=== PATIENT | female | born 1950 | race Caucasian/White ===

== ENCOUNTER → 2023-09-16 06:36 | Outpatient (REF) | payer MEDICARE, OTHER, SELFPAY | LOC: MRI 3T 06:36 | PROVIDERS: ATTENDING PHYSICIAN Specialist; FAMILY PHYSICIAN Internal Medicine | DX: M25.512 Pain in left shoulder (principal) | CPT/HCPCS: 73221 ==

== ENCOUNTER → 2023-09-30 11:50 | Outpatient (REF) | payer MEDICARE, OTHER, SELFPAY ==
[2023-09-30 16:19] LABS: ALT (SGPT) 19 U/L (0-35); AST (SGOT) 24 U/L (14-36); Albumin 4.2 g/dl (3.5-5.0); Alkaline Phosphatase 116 U/L (38-126); Blood Urea Nitrogen 27 mg/dl (7-17); Calcium 9.2 mg/dl (8.4-10.2); Carbon Dioxide 27 mmol/L (22-30); Chloride 101 mmol/L (98-107); Glucose 96 mg/dl (70-99); HDL Cholesterol 69 mg/dl; LDL Cholesterol, Calculated 87 mg/dl; Potassium 3.9 mmol/L (3.5-5.1); Sodium 136 mmol/L (135-145); Total Bilirubin 0.7 mg/dl (0.2-1.3); Total Cholesterol 181 mg/dl (50-199); Total Protein 7.1 g/dl (6.3-8.2); Triglyceride 127 mg/dl (10-149); Very Low Density Lipoprotein 25 mg/dl (0-30); eGFR > 60.00
[2023-09-30 16:25] LABS: Vitamin D, 25-OH*** 30.6 ng/mL (30-80)
[2023-09-30 16:36] LABS: % Basophils 0.5 % (0-2); % Immature Granulocytes 0.5 % (0-0.5); % Lymphocytes 21.8 % (20.5-51.1); % Monocytes 8.2 % (1.7-9.3); Absolute Eosinophils 0.1 10^3/uL (0-0.7); Absolute Lymphocytes 1.9 10^3/uL (1.2-3.4); Absolute Monocytes 0.7 10^3/uL (0.1-0.6); Hematocrit 41.3 % (37.0-47.0); Mean Corp Hgb Conc. 33.9 g/dL (33.0-37.0); Mean Corpuscular Hgb 31.5 pg (27.0-31.0); Mean Corpuscular Volume 92.8 fL (81.0-99.0); Mean Platelet Volume 9.7 fL (7.4-10.4); Nucleated Red Blood Cells % 0 %; Platelet Count 353 10^3/uL (130-400); Red Blood Cell Count 4.45 10^6/uL (4.20-5.40); Red Cell Dist. Width 13.2 % (11.5-14.5); White Blood Cell Count 8.8 10^3/uL (4.8-10.8)
[2023-10-01 15:55] LABS: Glycohemoglobin (HgbA1c) 5.8 % (4.0-5.6)
== END ==
LOC: RCS 11:50
PROVIDERS: ATTENDING PHYSICIAN Specialist; FAMILY PHYSICIAN Internal Medicine; REFERRING PHYSICIAN Internal Medicine
DX: I10 Essential (primary) hypertension (principal); E78.5 Hyperlipidemia, unspecified; R73.01 Impaired fasting glucose; E55.9 Vitamin D deficiency, unspecified; Z01.818 Encounter for other preprocedural examination
CPT/HCPCS: 36415; 80053; 80061; 82306; 83036; 85025; 93005

== ENCOUNTER → 2023-10-04 11:48 | Outpatient (REF) | payer MEDICARE, OTHER, SELFPAY ==
[2023-10-06 15:22] LABS: Lyme Antibody Screen, EIA Negative (Negative)
== END ==
LOC: HWLAB 11:48
PROVIDERS: ATTENDING PHYSICIAN Internal Medicine
DX: M79.2 Neuralgia and neuritis, unspecified (principal)
CPT/HCPCS: 36415; 86618

== ENCOUNTER → 2024-02-01 07:19 | Outpatient (REF) | payer MEDICARE, OTHER, SELFPAY | LOC: HWWDC 07:19 | PROVIDERS: ATTENDING PHYSICIAN Internal Medicine | DX: Z12.31 Encounter for screening mammogram for malignant neoplasm of breast (principal) | CPT/HCPCS: 77063; 77067 ==

== ENCOUNTER → 2024-02-23 06:37 | Outpatient (REF) | payer MEDICARE, OTHER, SELFPAY | LOC: PAVMRI 06:37 | PROVIDERS: ATTENDING PHYSICIAN Specialist; FAMILY PHYSICIAN Internal Medicine | DX: M25.511 Pain in right shoulder (principal) | CPT/HCPCS: 73221 ==

== ENCOUNTER → 2024-04-19 12:29 | Outpatient (REF) | payer MEDICARE, OTHER, SELFPAY ==
[2024-04-19 16:34] LABS: ALT (SGPT) 24 U/L (0-35); AST (SGOT) 25 U/L (14-36); Albumin 4.6 g/dl (3.5-5.0); Alkaline Phosphatase 133 U/L (38-126); Blood Urea Nitrogen 24 mg/dl (7-17); Calcium 9.4 mg/dl (8.4-10.2); Carbon Dioxide 27 mmol/L (22-30); Chloride 100 mmol/L (98-107); Glucose 91 mg/dl (70-99); HDL Cholesterol 81 mg/dl; LDL Cholesterol, Calculated 82 mg/dl; Potassium 3.7 mmol/L (3.5-5.1); Sodium 136 mmol/L (135-145); Total Bilirubin 0.9 mg/dl (0.2-1.3); Total Cholesterol 180 mg/dl (50-199); Total Protein 7.7 g/dl (6.3-8.2); Triglyceride 85 mg/dl (10-149); Very Low Density Lipoprotein 17 mg/dl (0-30); eGFR > 60.00
[2024-04-20 10:16] LABS: Glycohemoglobin (HgbA1c) 5.5 % (4.0-5.6)
== END ==
LOC: HWLAB 12:29
PROVIDERS: ATTENDING PHYSICIAN Internal Medicine; REFERRING PHYSICIAN Internal Medicine
DX: R73.01 Impaired fasting glucose (principal); E78.5 Hyperlipidemia, unspecified
CPT/HCPCS: 36415; 80053; 80061; 83036

== ENCOUNTER 2024-07-25 08:58 | Outpatient (RCR) | payer MEDICARE, OTHER, SELFPAY | END 2024-07-25 23:59 | disposition home or self-care (01) | LOC: RPT 08:58 | PROVIDERS: ATTENDING PHYSICIAN Orthopaedic Surgery; FAMILY PHYSICIAN Internal Medicine | DX: Z47.1 Aftercare following joint replacement surgery (principal); Z73.6 Limitation of activities due to disability; Z96.642 Presence of left artificial hip joint; M25.552 Pain in left hip; M62.81 Muscle weakness (generalized); R26.89 Other abnormalities of gait and mobility | CPT/HCPCS: 97010; 97110; 97162; 97530 ==

== ENCOUNTER 2024-08-27 09:26 | Outpatient (RCR) | payer MEDICARE, OTHER, SELFPAY | END 2024-08-27 23:59 | disposition home or self-care (01) | LOC: RPT 09:26 | PROVIDERS: ATTENDING PHYSICIAN Orthopaedic Surgery; FAMILY PHYSICIAN Internal Medicine | DX: Z47.1 Aftercare following joint replacement surgery (principal); Z73.6 Limitation of activities due to disability; M25.552 Pain in left hip; M62.81 Muscle weakness (generalized); R26.89 Other abnormalities of gait and mobility; Z96.642 Presence of left artificial hip joint | CPT/HCPCS: 97110; 97112; 97164; 97530 ==

== ENCOUNTER 2024-09-19 12:01 | Outpatient (RCR) | payer MEDICARE, OTHER, SELFPAY | END 2024-09-19 23:59 | disposition home or self-care (01) | LOC: RPT 12:01 | PROVIDERS: ATTENDING PHYSICIAN Physician Assistant Medical; FAMILY PHYSICIAN Internal Medicine | DX: Z47.1 Aftercare following joint replacement surgery (principal); Z96.642 Presence of left artificial hip joint; Z73.6 Limitation of activities due to disability; M25.552 Pain in left hip; M62.81 Muscle weakness (generalized); R26.89 Other abnormalities of gait and mobility | CPT/HCPCS: 97110; 97112; 97530 ==

== ENCOUNTER → 2024-10-02 08:05 | Outpatient (REF) | payer MEDICARE, OTHER, SELFPAY ==
[2024-10-02 09:01] LABS: Hematocrit 40.0 % (37.0-47.0); Hemoglobin 13.1 g/dL (12.0-16.0); Mean Corp Hgb Conc. 32.8 g/dL (33.0-37.0); Mean Corpuscular Volume 89.9 fL (81.0-99.0); Nucleated Red Blood Cells % 0 %; Platelet Count 294 10^3/uL (130-400); Red Cell Dist. Width 14.3 % (11.5-14.5)
[2024-10-02 10:13] LABS: Blood Urea Nitrogen 23 mg/dl (7-17); Calcium 9.2 mg/dl (8.4-10.2); Carbon Dioxide 23 mmol/L (22-30); Chloride 104 mmol/L (98-107); Glucose 95 mg/dl (70-99); Potassium 3.9 mmol/L (3.5-5.1); Sodium 137 mmol/L (135-145); eGFR > 60.00
== END ==
LOC: REG 08:05
PROVIDERS: ATTENDING PHYSICIAN Specialist; FAMILY PHYSICIAN Internal Medicine
DX: Z01.818 Encounter for other preprocedural examination (principal)
CPT/HCPCS: 36415; 80048; 85025; 93005

== ENCOUNTER 2024-10-10 07:16 | Outpatient (RCR) | payer MEDICARE, OTHER, SELFPAY | END 2024-10-10 23:59 | disposition home or self-care (01) | LOC: RPT 07:16 | PROVIDERS: ATTENDING PHYSICIAN Physician Assistant Medical; FAMILY PHYSICIAN Internal Medicine | DX: Z47.1 Aftercare following joint replacement surgery (principal); Z73.6 Limitation of activities due to disability; Z96.642 Presence of left artificial hip joint; M62.81 Muscle weakness (generalized); M25.552 Pain in left hip; R26.89 Other abnormalities of gait and mobility; M25.571 Pain in right ankle and joints of right foot; Q66.51 Congenital pes planus, right foot; M76.821 Posterior tibial tendinitis, right leg | CPT/HCPCS: 97110; 97112; 97530 ==

== ENCOUNTER → 2024-10-15 12:36 | Outpatient (REF) | payer MEDICARE, OTHER, SELFPAY | LOC: HWRAD 12:36 | PROVIDERS: ATTENDING PHYSICIAN Physician Assistant Surgical; FAMILY PHYSICIAN Internal Medicine; REFERRING PHYSICIAN Podiatrist Foot & Ankle Surgery | DX: M75.121 Complete rotator cuff tear or rupture of right shoulder, not specified as traumatic (principal); M19.071 Primary osteoarthritis, right ankle and foot | CPT/HCPCS: 73200; 73630 ==

== ENCOUNTER 2024-10-24 19:25 | Inpatient (IN) | payer MEDICARE, OTHER, SELFPAY ==
[2024-10-24] VITALS (8 sets, daily range): BP systolic 135–163; BP diastolic 62–78; BMI 45.9; BMI 44.1
[2024-10-24 15:36] LABS: D-Dimer 1.69 ug/mlFEU (0.00-0.50)
[2024-10-24 15:48] LABS: ALT (SGPT) 17 U/L (0-35); AST (SGOT) 21 U/L (14-36); Albumin 2.5 g/dl (3.5-5.0); Alkaline Phosphatase 64 U/L (38-126); Blood Urea Nitrogen 12 mg/dl (7-17); Calcium 5.5 mg/dl (8.4-10.2); Carbon Dioxide 17 mmol/L (22-30); Chloride 119 mmol/L (98-107); Estimated Creatinine Clearance 90 ml/min; Glucose 134 mg/dl (70-99); Potassium 2.4 mmol/L (3.5-5.1); Sodium 142 mmol/L (135-145); Total Protein 4.8 g/dl (6.3-8.2); eGFR > 60.00
[2024-10-24 15:50] LABS: Troponin I < 0.012 ng/ml
--- NOTE | 2024-10-24 15:59 | ED.GENMED ---
History of Present Illness
General
Chief Complaint: Breathing Problem
Time Seen by Provider: 10/24/24 15:10
History of Present Illness
History of Present Illness:
73-year-old female with prior history of provoked PE, off Eliquis, hypertension, hyperlipidemia presenting to the emergency department for hypoxia. Patient presents from outpatient surgical center where she had her right shoulder replaced by
orthopedics. After the procedure, was unable to be weaned of oxygen. She notes that she was feeling very dyspneic with any type of minimal exertion. She reports that she got her left shoulder replaced a year ago and had an interscalene block. A
few days after the procedure she became very short of breath she was told was likely from the block. The block lasts for 72 hours. She denies any chest pain. Denies any additional acute medical complaint
Past History
Past History
ED Past Medical History: HTN and Valvular disease
ED Past Surgical History: , Gynecological, Orthopedic (Bilateral knee replacement), Tonsilectomy and Other
Social History
Tobacco: Non-smoker
Alcohol: None
Drug: None
Personal:
Living: with family
Employment: Retired
Phy Exam
Physical Exam
Physical Exam:
General: Well-appearing, no clinical signs of dehydration, nontoxic and in no acute distress
HEENT: protecting airway
Neck: appears supple
CV: Normal heart rate, regular rhythm
Resp: No accessory muscle use, no increased work of breathing, lungs clear to auscultation bilaterally
Abd: no distension
Extremities: No deformities, no swelling
Neuro: alert, no focal neurologic deficit
: deferred
Rectal: deferred
Psych: Normal affect
Skin: Intact
Scores
Heart Failure Risk
Heart Failure Risk Score: Not Applicable
Course
Orders/Labs/Results
Orders:
Orders
10/24/24 Dinner
Cholesterol Lowering
At Your Request: Full Participation
Does patient need a safe tray?: No
Cholesterol Lowering: Sodium, 2 Gram
10/24/24 15:09
Electrocardiogram (*1) Urgent
Reason for Study: Shortness of Breath
10/24/24 15:10
EKG- Treatment ONCE
10/24/24 15:17
Complete Blood Count/With Diff Urgent
Comprehensive Metabolic Panel Urgent
D-Dimer Urgent
Troponin I Urgent
10/24/24 15:38
CT Chest PE Study Urgent
Comment:
Reason For Exam: SOB after surgery, hx PE
10/24/24 16:15
CMP [Comprehensive Metabolic Panel] Urgent
10/24/24 18:35
Admit/Transfer Patient As Directed
Co-Sign Provider:
Level of Care: Inpatient admission
Assign to:: Medical/Surgical
Physician / Group: fely gilbert
Diagnosis: hypoxia post left shoulder replacement
Reason for Hospitalization: hypoxia post left shoulder replacement
Expected length of stay greater than two midnights?: Yes
ELOS- Estimated Length of Stay in days: 3
I certify the patient meets the requirements for IP care: Yes
Code Status As Directed
Resuscitation Status: Full Code
10/24/24 18:37
PRN Pain Medication Management As Directed
May give lesser potent ordered pain med per pt: Yes
preference::
Protocol:: Medication orders for pain may be administered in a
manner that supports deferring to patient preference
when the pt is:
- Requesting an ordered lesser potent pain medication.
Least to most potent pain medications are defined
as: acetaminophen < NSAID < tramadol < opioids
(morphine, oxycodone, hydromorphone).
- Requesting a lesser dose of the same medication IF
ORDERED.
- Requesting a less intrusive route of administration
if both routes are prescribed by the provider (PO <
IV).
10/24/24 20:04
Acetaminophen [Tylenol] 650 mg PO Q4HPRN PRN
Bisacodyl [Dulcolax] 10 mg RECTAL [id number] PRN
Celecoxib [Celebrex] 100 mg PO BID
Dexamethasone [Decadron] 4 mg PO BID
Dextrose 50%-Water [Dextrose 50% Syringe] 12.5 grams IV [id number] PRN
Glucagon [GlucaGen] 1 mg IM PRN PRN
Oxycodone [Roxicodone] 5 mg PO Q6HPRN PRN severe pain
Polyethylene Glycol Powder [Miralax] 17 grams PO DAILYPRN PRN
10/24/24 20:04
Activity As Directed
Activity Level: With Assistance
Bedside Glucose Monitoring As Directed
Frequency: AC&HS
Additional Instructions:: Change to q6h if pt on TPN, tube feeding or not eating
Pneumatic Compression Sleeves As Directed
Type: Knee high
Vital Signs As Directed
Frequency: Per unit guidelines
O2 Therapy [RESP] Routine
Nasal Cannula Liter Flow: 4 LPM
Titrate/Wean O2 to maintain O2 sat greater than (%): 92
Pulse Ox/spot Check [RESP] Routine
Quantity: 1
Ot Eval And Treat Routine
Pt Eval And Treat Routine
Activity Level: As Tolerated
DX Deep Vein Thrombosis Video Routine
10/24/24 22:00
Docusate Sodium [Colace] 100 mg PO HS
10/25/24 00:00
Cephalexin Monohydrate [Keflex] 250 mg PO Q6
10/25/24 06:00
Complete Blood Count/With Diff IN AM
Comprehensive Metabolic Panel IN AM
Glycohemoglobin (HgbA1c) IN AM
10/25/24 07:30
Insulin Aspart Corrective Low [Novolog Flexpen-Low Resistance] See Protocol SC AC
10/25/24 08:00
Amlodipine [Norvasc] 5 mg PO DAILY
Aspirin 325 mg PO DAILY
Cholecalciferol (Vitamin D3) [VITAMIN D3 (cholecalciferol)] 25 mcg PO DAILY
fluticasone propionate 2 spray NASAL DAILY
10/25/24 18:00
Atorvastatin [Lipitor] 20 mg PO QPM
10/26/24 06:00
Complete Blood Count/With Diff IN AM
Comprehensive Metabolic Panel IN AM
Abnormal Lab Results
10/24/24 10/24/24
15:17 16:15
Abs Immat Gran (auto) 0.1 H 10^3/uL
(0-0.05)
Absolute Neuts (auto) 9.8 H 10^3/uL
(1.4-6.5)
Absolute Lymphs (auto) 0.4 L 10^3/uL
(1.2-3.4)
Neutrophils % 94.0 H %
(42.2-75.2)
Lymphocytes % 3.7 L %
(20.5-51.1)
Monocytes % 1.6 L %
(1.7-9.3)
D-Dimer 1.69 H ug/mlFEU
(0.00-0.50)
Potassium 2.4 L* mmol/L
(3.5-5.1)
Chloride 119 H mmol/L
(98-107)
Carbon Dioxide 17 L mmol/L
(22-30)
Creatinine 0.4 L mg/dL
(0.6-1.0)
Glucose 134 H mg/dl 162 H mg/dl
(70-99) (70-99)
Calcium 5.5 L* mg/dl
(8.4-10.2)
Total Protein 4.8 L g/dl
(6.3-8.2)
Albumin 2.5 L g/dl
(3.5-5.0)
10/24/24 15:17
10/24/24 16:15
Vital Signs
Initial and Last Documented VS:
Initial Vital Signs
Temp Pulse Resp BP Pulse Ox
98.0 F 105 24 149/78 92
10/24/24 15:02 10/24/24 15:02 10/24/24 15:02 10/24/24 15:02 10/24/24 15:02
Last Documented Vital Signs
Temp Pulse Resp BP Pulse Ox
97.9 F 104 17 163/72 92
10/24/24 20:15 10/24/24 20:15 10/24/24 20:15 10/24/24 20:15 10/24/24 20:15
MDM/Problems Addressed
MDM/Problems Addressed:
73-year-old female presenting to the emergency department for shortness of breath after right shoulder replacement. Vital signs on arrival are significant for mild tachycardia.
On exam, patient in no acute respiratory distress, however low oxygenation in the high 80s, low 90s. With minimal exertion, patient desaturates. Given location patient's block, immediate concern for pneumothorax. However, lung sounds are clear
bilaterally. PE is a consideration, however low suspicion given onset of symptoms immediately after procedure. Patient had screening laboratory analysis sent prior to my assessment including a dimer. Pending dimer results, plan for chest x-ray
imaging versus CT.
16:30 - Dimer is positive, so will obtain CT. Patient's labs show hypocalcemia and hypokalemia. Patient notes no abnormalities in her prelaboratory testing. Suspect possible lab error. Will repeat. Ultrasound-guided line placed in the left
upper extremity.
18:00 -repeat labs show normal electrolytes, without indication for repletion. Suspected lab error. CT of the chest without pneumo, or evidence of large PE. There is mention of some atelectasis. Patient ambulated to the bathroom, desatted to the
70s. Plan for admission for respiratory monitoring
*Pulse Oximetry
SaO2: 93
Nasal Cannula flow liters per minute: 4
Oxygen Mode of Delivery: Room air
Patient hypoxic: no
*Critical Care Note
Total Time (30-74mins, 75-104mins- exclusive of procedures): Not Applicable
ED Attending Note
-
Portions of this chart may have been created with voice recognition software.� Occasional wrong word or��sound alike� substitutions may have occurred due to the inherent limitations of voice recognition software.
Discharge Plan
Departure
Patient Disposition: Admit
Date of Disposition: 10/24/24
Time of Disposition: 18:00
Presentation/result/management discussed w/ accepting MD/DO: Hospitalist
Condition: Fair
Discharge Problem:
Dyspnea, Hypoxia
Interventions
Interventions:
*Risk Screen - Suicide Last Done: 10/24/24 15:00
*General Assessment Last Done: 10/24/24 15:01
*Neglect/Abuse Screening Last Done: 10/24/24 15:00
*ED- Fall Risk Assessment Last Done: 10/24/24 15:01
*ED COVID-19 Vaccine History Last Done: 10/24/24 15:01
*Nursing Disposition Last Done: 10/24/24 20:00
ED- Cardiac Assessment Last Done: 10/24/24 15:18
ED- Pulmonary Assessment Last Done: 10/24/24 15:18
Discharge Date and Time
Discharge Date/Time: 10/24/24 20:07
[2024-10-24 16:14] LABS: Hematocrit 39.7 % (37.0-47.0); Hemoglobin 13.3 g/dL (12.0-16.0); Mean Corp Hgb Conc. 33.5 g/dL (33.0-37.0); Mean Corpuscular Volume 88.6 fL (81.0-99.0); Nucleated Red Blood Cells % 0 %; Platelet Count 293 10^3/uL (130-400); Red Cell Dist. Width 14.4 % (11.5-14.5)
[2024-10-24 16:47] LABS: ALT (SGPT) 24 U/L (0-35); AST (SGOT) 32 U/L (14-36); Albumin 4.1 g/dl (3.5-5.0); Alkaline Phosphatase 92 U/L (38-126); Blood Urea Nitrogen 17 mg/dl (7-17); Calcium 9.0 mg/dl (8.4-10.2); Carbon Dioxide 26 mmol/L (22-30); Chloride 104 mmol/L (98-107); Estimated Creatinine Clearance 77 ml/min; Glucose 162 mg/dl (70-99); Potassium 3.9 mmol/L (3.5-5.1); Sodium 138 mmol/L (135-145); Total Protein 7.2 g/dl (6.3-8.2); eGFR > 60.00
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
[2024-10-24 20:47] LABS: Glucose - Point of Care 186 mg/dl (70-99)
--- NOTE | 2024-10-24 21:12 | PTCARENOTE ---
19:50 pt rec'vd from ER, ambulated to restroom and scale. Sling over drsg on RUE, NWB with ext. Pt with at the bedside, both oriented to unit.
[2024-10-24] MEDS: DECADRON 4 MG PO (21:29)
[2024-10-24] MEDS: COLACE 100 MG PO (21:29)
[2024-10-24] MEDS: CELEBREX 100 MG PO (21:29)
[2024-10-24] MEDS: ROXICODONE 5 MG PO (23:13)
[2024-10-24] MEDS: KEFLEX 250 MG PO (23:13)
[2024-10-25 03:06] VITALS: BP 134/78
[2024-10-25 04:26] LABS: COVID-19 Antigen Negative (Negative)
[2024-10-25] MEDS: ROXICODONE 5 MG PO ×2 (05:40→14:41)
[2024-10-25] MEDS: KEFLEX 250 MG PO ×4 (05:40→23:37)
[2024-10-25 07:15] VITALS: BP 132/71
[2024-10-25 07:36] LABS: Hematocrit 34.8 % (37.0-47.0); Hemoglobin 11.6 g/dL (12.0-16.0); Mean Corp Hgb Conc. 33.3 g/dL (33.0-37.0); Mean Corpuscular Volume 88.3 fL (81.0-99.0); Nucleated Red Blood Cells % 0 %; Platelet Count 285 10^3/uL (130-400); Red Cell Dist. Width 14.6 % (11.5-14.5)
[2024-10-25] MEDS: NOVOLOG FLEXPEN-LOW RESISTANCE 1 UNITS SC (07:50)
[2024-10-25 07:51] LABS: Glucose - Point of Care 170 mg/dl (70-99)
[2024-10-25] MEDS: ASPIRIN 325 MG PO (07:55)
[2024-10-25] MEDS: CELEBREX 100 MG PO ×2 (07:55→20:04)
[2024-10-25] MEDS: VITAMIN D3 (cholecalciferol) 25 MCG PO (07:55)
[2024-10-25] MEDS: DECADRON 4 MG PO ×2 (07:55→20:04)
[2024-10-25] MEDS: NORVASC 5 MG PO (07:56)
[2024-10-25 07:57] LABS: ALT (SGPT) 21 U/L (0-35); AST (SGOT) 30 U/L (14-36); Albumin 3.8 g/dl (3.5-5.0); Alkaline Phosphatase 93 U/L (38-126); Blood Urea Nitrogen 17 mg/dl (7-17); Calcium 8.8 mg/dl (8.4-10.2); Carbon Dioxide 25 mmol/L (22-30); Chloride 106 mmol/L (98-107); Estimated Creatinine Clearance 88 ml/min; Glucose 149 mg/dl (70-99); Potassium 4.0 mmol/L (3.5-5.1); Sodium 138 mmol/L (135-145); Total Protein 6.7 g/dl (6.3-8.2); eGFR > 60.00
[2024-10-25 10:13] LABS: Glycohemoglobin (HgbA1c) 5.7 % (4.0-5.6)
--- NOTE | 2024-10-25 11:03 | CM ---
CM following re: discharge planning.
Reviewed pt's chart, met with pt.
Pt is a 73 year old female, admitted with primary dx of Shortness of breath post right shoulder replacement.
Pt reports she lives with [facility] community with master bedroom and master bathroom on the 1st floor, has 3 supportive children. Pt reports she has a walker, cane, scooter, C-pap machine at home provided by [employer]. had
home O2 in the past, does not have now. Pt reports she is known to [facility] and current with outpatient therapy. Pt expressed her desire to return back home at discharge with [facility]N and after 2-3 weeks she will go to outpatient therapy. No SNF
history. Pt is on supplemental O2 here and pt has a goal not to have home O2.
PT and OT will evaluate the pt to determine a level of care at discharge.
A referral to [facility] made.
PCP: Ria Mireles
Pharmacy: [facility]
D/C plan: per pt's desire, home with [facility]N and family support. to transport at discharge.
CM will follow with discharge plan updates as hospitalization progresses
--- NOTE | 2024-10-25 12:25 | W.PN.HOSP.TC ---
Today's Communication/Plan
-
Monitor vitals
See plan
Check echo
Family to bring CPAP
Wean oxygen as tolerated
cw IS
Assessment / Plan
Assessment / Plan
General: No Pain, Fever or Chills
HEENT: NormoCephalic, Anicteric, Moist mucous membranes
Respiratory: Clear; No Wheezes, Rales or Rhonchi
Cardiac: S1/S2 and Regular Rhythm
GI: Soft, Non Tender, Non Distended
Musculoskeletal: Edema, Right Upper Extremity (Status post right shoulder replacement with Merisel dressing in place); No Edema, Left Upper Extremity, Edema, Left Lower Extremity or Edema, Right Lower Extremity
Neuro: AO x 3, Nonfocal/grossly intact
Psych: Calm
Acute hypoxic respiratory insufficiency status post anesthesia from right shoulder replacement/interscalene block
Also has history of pulmonary hypertension, ERON
Had procedure done today 10/24/[address] Contreras
Reported hypoxia was 70% with ambulation
Current hfltdo28% on 4 L nasal cannula
- Continue to monitor O2 as interscalene block last 72 hours
- Incentive spirometry
-PT
CT chest with right middle lobe, lower lobe atelectasis; cw IS
check echo given history of mitral valve prolapse, follows with Dr. Meier's group outpatient
#Status post right shoulder replacement/interscalene block
Sling to right arm x 2 weeks
- PT consult
- Continue oxycodone 5 mg every 6 hours as needed pain
- Continue cefadroxil 500 mg twice daily, aspirin 325 mg daily, Celebrex 100 mg p.o. twice daily, dexamethasone 4 mg p.o. twice daily, Colace 100 mg at bedtime
# Provoked right groin DVT with bilateral PEs post hysterectomy BSO 2020
Was on brief course of Eliquis
-Continue aspirin 325 mg daily
Sleep apnea
Advised family to bring CPAP, ordered
History of pulmonary hypertension per patient
#Hypertension
BP 138/75
-Continue amlodipine 5 mg daily
#HLD
Continue atorvastatin 20 mg every afternoon
#Insomnia
Hold Lunesta 3 mg at bedtime as needed
#Class III obesity
Patient currently on Zepbound 5 mg subcu Fridays
Other PMH:
Constipation
Osteoarthritis
recurrent sinus infections
bilateral retinal macro aneurysms
DVT prophylaxis
Aspirin 325 mg daily
Full code
Anticipated Discharge: Within 24 hours
Subjective/Interval History
-
Date of Service: October 25, 2024
denies pain
Objective Data
-
Labs:
Laboratory Results
10/25/24
07:11
WBC 12.6 H
Hgb 11.6 L
Hct 34.8 L
Plt Count 285
Sodium 138
Potassium 4.0
Chloride 106
Carbon Dioxide 25
BUN 17
Creatinine 0.6
Glucose 149 H
Calcium 8.8
Total Bilirubin 0.5
AST 30
ALT 21
Alkaline Phosphatase 93
Vital Signs:
Vital Signs
Temp Pulse Resp BP Pulse Ox
98.1 F 87 16 132/71 94
10/25/24 07:15 10/25/24 07:15 10/25/24 07:15 10/25/24 07:15 10/25/24 10:00
I&O
10/24/24 10/25/24 10/26/24
06:59 06:59 06:59
Intake Total 480 / 480
Balance 480 / 480
[2024-10-25 12:27] VITALS: BP 157/89; PULSE 91; O2SAT 98
--- NOTE | 2024-10-25 12:44 | VNURNOTE ---
Home Health Liaison met with patient and spouse at bedside to discuss [facility] nurse/therapy, visits, schedule and homebound status. Patient is agreeable and understands that visits at home will be 2-3 x per week to assess and teach medical
management. Patient is aware that [facility] will contact them for start of care in 1-2 days after discharge from . Provided contact number for [facility]. Will watch for new home 02 needs.
[facility] referral completed in [facility].
[2024-10-25 13:49] VITALS: BP 157/89; PULSE 91; O2SAT 98
[2024-10-25 14:30] LABS: Glucose - Point of Care 123 mg/dl (70-99)
[2024-10-25] MEDS: NOVOLOG FLEXPEN-LOW RESISTANCE SC ×2 (14:34→17:34)
[2024-10-25 15:10] VITALS: BP 148/73
[2024-10-25] MEDS: MIRALAX 17 GRAMS PO ×2 (16:21→20:04)
[2024-10-25 17:35] LABS: Glucose - Point of Care 127 mg/dl (70-99)
[2024-10-25] MEDS: LIPITOR 20 MG PO (17:36)
[2024-10-25] MEDS: COLACE 100 MG PO (20:04)
[2024-10-25 21:12] LABS: Glucose - Point of Care 126 mg/dl (70-99)
[2024-10-25] MEDS: ROBITUSSIN 100 MG PO (21:33)
[2024-10-25 23:00] VITALS: BP 145/81
--- NOTE | 2024-10-25 23:06 | W.PN.UPDATE ---
Update Note
Progress Note Update
Patient complained of chest pressure with inspiration. SPO2 93% RA. Afebrile. Bp 145/81, RR 18. Denies sob.
-Diminishes lung sound on exam
-Chest x-ray, cbc, bmp, mag, troponin, vbg, pro BNP, ekg ordered.
-Flu and covid neg on 10/24/24
-Vbg (ph7.39, pco2 43, po2 81, hco3 26.0).
-Troponin is neg
-Pro BNP 448
Chest X-ray result is pending.
Duo nebs PRN.
Will place patient on tele
[2024-10-25] MEDS: DUONEB 3 ML INH (23:07)
--- NOTE | 2024-10-25 23:56 | PTCARENOTE ---
At 2250 pt started c/o SOB, chest pressure/tightness, felt she was shallow breathing and noticed that she was only reaching 500 on IS when she usually could reach 1000. JUAN Bullock notified and aware. Pt 94% on room air. Placed pt on 2L nc. O2
recheck at 2300 was 95% on 2L. Duoneb ordered and administered @ 2307. Pt placed on tele monitor, Normal Sinus Rhythm/Sinus Tach. Labwork (BMP/CBC/Mag/BNP/Troponin/blood gas) drawn and sent. EKG completed. See report. Chest x-ray also
completed. Pt ambulated to bathroom w/ 2L nc on and stated she felt better. 2L nc maintained. JUAN Bullock aware. Awaiting results. Care ongoing.
[2024-10-26 00:14] LABS: Venous Blood Gas B.E. 0.8 mmol/L (-4 to +4); Venous Blood Gas O2 Sat % 97.0 %
[2024-10-26 00:15] LABS: Venous Blood Gas O2 Therapy 2
[2024-10-26 00:31] LABS: Blood Urea Nitrogen 25 mg/dl (7-17); Calcium 8.9 mg/dl (8.4-10.2); Carbon Dioxide 24 mmol/L (22-30); Chloride 105 mmol/L (98-107); Estimated Creatinine Clearance 88 ml/min; Glucose 146 mg/dl (70-99); Magnesium 2.2 mg/dl (1.6-2.3); Potassium 4.2 mmol/L (3.5-5.1); Sodium 139 mmol/L (135-145); eGFR > 60.00
[2024-10-26 00:42] LABS: Hematocrit 37.4 % (37.0-47.0); Hemoglobin 12.5 g/dL (12.0-16.0); Mean Corp Hgb Conc. 33.4 g/dL (33.0-37.0); Mean Corpuscular Volume 89.0 fL (81.0-99.0); Platelet Count 324 10^3/uL (130-400); Red Cell Dist. Width 15.0 % (11.5-14.5)
[2024-10-26 00:48] LABS: Troponin I < 0.012 ng/ml
[2024-10-26 03:00] VITALS: BP 165/86
[2024-10-26 03:26] VITALS: BP 140/80
[2024-10-26] MEDS: KEFLEX 250 MG PO ×2 (05:51→12:14)
[2024-10-26 06:23] LABS: Hematocrit 35.8 % (37.0-47.0); Hemoglobin 11.6 g/dL (12.0-16.0); Mean Corp Hgb Conc. 32.4 g/dL (33.0-37.0); Mean Corpuscular Volume 89.9 fL (81.0-99.0); Nucleated Red Blood Cells % 0 %; Platelet Count 274 10^3/uL (130-400); Red Cell Dist. Width 14.8 % (11.5-14.5)
[2024-10-26 06:41] LABS: Blood Urea Nitrogen 23 mg/dl (7-17); Calcium 8.5 mg/dl (8.4-10.2); Carbon Dioxide 27 mmol/L (22-30); Chloride 105 mmol/L (98-107); Estimated Creatinine Clearance 88 ml/min; Glucose 133 mg/dl (70-99); Potassium 4.2 mmol/L (3.5-5.1); Sodium 137 mmol/L (135-145); eGFR > 60.00
[2024-10-26 07:15] VITALS: BP 153/83
[2024-10-26 07:22] LABS: Glucose - Point of Care 123 mg/dl (70-99)
[2024-10-26] MEDS: NOVOLOG FLEXPEN-LOW RESISTANCE SC ×2 (08:22→11:52)
[2024-10-26] MEDS: DUONEB 3 ML INH (09:14)
[2024-10-26] MEDS: DECADRON 4 MG PO (09:23)
[2024-10-26] MEDS: ASPIRIN 325 MG PO (09:23)
[2024-10-26] MEDS: CELEBREX 100 MG PO (09:23)
[2024-10-26] MEDS: VITAMIN D3 (cholecalciferol) 25 MCG PO (09:23)
[2024-10-26] MEDS: MIRALAX 17 GRAMS PO (09:23)
[2024-10-26] MEDS: NORVASC 5 MG PO (09:24)
[2024-10-26] MEDS: ORETIC 25 MG PO (10:17)
[2024-10-26 10:47] VITALS: BP 157/102; PULSE 94; O2SAT 96
--- NOTE | 2024-10-26 10:57 | CM ---
CM following re: discharge planning.
Reviewed pt's chart, met with pt and pt's at bedside.
Pt reports she lives with [facility] community with master bedroom and master bathroom on the 1st floor, has 3 supportive children. Pt reports she has a walker, cane, scooter, C-pap machine at home provided by [employer].
PT and OT evaluations noted - home PT/OT recommended. A referral to [facility] made yesterday, pt accepted for services. Pt reports she is on room air and will not need home Oxygen.
Pt stated she is aware she will be discharged home today and she expressed her agreement with discharge. IMM reviewed, placed on chart, pt has a copy.
Please [facility] at [phone].
D/C plan: home with VN and family support. to transport.
[2024-10-26 11:25] VITALS: BP 143/79
[2024-10-26 11:40] LABS: Glucose - Point of Care 120 mg/dl (70-99)
--- NOTE | 2024-10-26 13:45 | W.PN.HOSP.TC ---
Addendum entered and electronically signed by Bart Felipe MD 10/26/24 16:10:
Discussed with RN, patient is feeling better and no further respiratory symptoms. Will discharge patient home
Time of discharge 36 minutes
Original Note:
Today's Communication/Plan
-
Monitor vital signs see plan
Monitor till later today, if no recurrent symptoms then likely discharge
cw IS
Monitor breathing status
Assessment / Plan
Assessment / Plan
General: No Pain, Fever or Chills
HEENT: NormoCephalic, Anicteric, Moist mucous membranes
Respiratory: Clear; No Wheezes, Rales or Rhonchi
Cardiac: S1/S2 and Regular Rhythm
GI: Soft, Non Tender, Non Distended
Musculoskeletal: Edema, Right Upper Extremity (Status post right shoulder replacement with Merisel dressing in place); No Edema, Left Upper Extremity, Edema, Left Lower Extremity or Edema, Right Lower Extremity
Neuro: AO x 3, Nonfocal/grossly intact
Psych: Calm
Acute hypoxic respiratory insufficiency status post anesthesia from right shoulder replacement/interscalene block
Also has history of pulmonary hypertension, ERON
Had procedure done today 10/24/[address] Contreras
Reported hypoxia was 70% with ambulation on admission
Now on room air, did have chest tightness overnight however now improved. Chest x-ray with atelectasis.
- Continue to monitor O2 as interscalene block last 72 hours
- Incentive spirometry
-PT
CT chest with right middle lobe, lower lobe atelectasis; cw IS
check echo given history of mitral valve prolapse, not much change from prior follows with Dr. Meier's group outpatient
#Status post right shoulder replacement/interscalene block
Sling to right arm x 2 weeks
- PT consult
- Continue oxycodone 5 mg every 6 hours as needed pain
- Continue cefadroxil 500 mg twice daily, aspirin 325 mg daily, Celebrex 100 mg p.o. twice daily, dexamethasone 4 mg p.o. twice daily, Colace 100 mg at bedtime
# Provoked right groin DVT with bilateral PEs post hysterectomy BSO 2020
Was on brief course of Eliquis
-Continue aspirin 325 mg daily
Sleep apnea
Continue with CPAP
History of pulmonary hypertension per patient
#Hypertension
BP 138/75
-Continue amlodipine 5 mg daily
#HLD
Continue atorvastatin 20 mg every afternoon
#Insomnia
Hold Lunesta 3 mg at bedtime as needed
#Class III obesity
Patient currently on Zepbound 5 mg subcu Fridays
Other PMH:
Constipation
Osteoarthritis
recurrent sinus infections
bilateral retinal macro aneurysms
DVT prophylaxis
Aspirin 325 mg daily
Full code
Anticipated Discharge: Today
Subjective/Interval History
-
Date of Service: October 26, 2024
Denies pain
Objective Data
-
Labs:
Laboratory Results
10/26/24
05:45
WBC 12.0 H
Hgb 11.6 L
Hct 35.8 L
Plt Count 274
Sodium 137
Potassium 4.2
Chloride 105
Carbon Dioxide 27
BUN 23 H
Creatinine 0.6
Glucose 133 H
Calcium 8.5
Vital Signs:
Vital Signs
Temp Pulse Resp BP Pulse Ox
98.4 F 87 18 143/79 95
10/26/24 11:25 10/26/24 11:25 10/26/24 11:25 10/26/24 11:10/26/24 12:00
I&O
10/25/24 10/26/24 10/27/24
06:59 06:59 06:59
Intake Total 480 / 480 194 / 0 480 / 480
Balance 480 / 480 1940 / 194 480 / 480
[2024-10-26 15:40] VITALS: BP 138/75
--- NOTE | 2024-10-26 16:09 | W.DCSUMMARY ---
Discharge Summary
Discharge Data
Date of Admission: 10/24/24
Date of Discharge: 10/26/24
-
Pending Results: No
Hospital Course
73-year-old female with past medical history of sleep apnea, provoked DVT, hypertension, lipidemia, insomnia, obesity, osteoarthritis came to the hospital after right shoulder replacement/interscalene block. Postop patient had acute hypoxic
respiratory insufficiency and required oxygenation and was admitted to the hospital for further evaluation. In the hospital chest x-ray was consistent with atelectasis. She also had CT scan of the chest which was negative for PE however did show
right middle, lower lobe atelectasis. Patient symptoms continue to improve with incentive spirometer. Echocardiogram was also done given her history of mitral valve prolapse however there was no major change from previous echocardiogram. Over
time her symptoms continue to improve and she was able to be weaned off oxygen. Since her symptoms improved, she was then discharged home with instructions to follow-up with all her physicians outpatient.
Discharge Plan
-
Patient Disposition: Home (Routine Discharge)
Discharge Diagnosis/Procedures: Acute hypoxic respiratory insufficiency status post anesthesia from right shoulder replacement/interscalene block
Atelectasis
Diet: As tolerated
Activity: As tolerated
Additional Activity: Right upper extremity sling
Driving Restrictions: As prior to admission
Bathing Restrictions: None
Referrals:
Lakhwinder Contreras MD [Active, Orthopedics] - in one week
Ria Mireles MD [Family Provider, Internal Medicine] - in less than 1 week
Prescriptions:
Continued
atorvastatin 20 MG tablet
20 mg PO QPM Qty: 0
hydrochlorothiazide 25 mg Tablet
25 mg PO DAILY
aspirin 325 mg Tablet
325 mg PO DAILY
cefadroxil 500 mg Capsule
500 mg PO BID
Rx Instructions:
for 7 days starting 10/24/24
dexamethasone 4 mg Tablet
4 mg PO BID
Rx Instructions:
for 4 days starting 10/24/24
docusate sodium [Colace] 100 mg Capsule
100 mg PO HS
celecoxib [Celebrex] 100 mg Capsule
100 mg PO BID
Rx Instructions:
start after surgery on 10/24/24
oxycodone 5 mg Tablet
5 mg PO Q6HPRN PRN (Reason: severe pain)
eszopiclone [Lunesta] 3 mg Tablet
3 mg PO HSPRN PRN (Reason: sleep)
cholecalciferol (vitamin D3) [Vitamin D3] 25 mcg (1,000 unit) Tablet
25 mcg PO DAILY
coQ10 (ubiquinol) 100 mg Capsule
100 mg PO DAILY
Zepbound 5 mg/0.5 mL Pen Injector
5 mg SC FR
polyethylene glycol 3350 [Miralax] 17 gram Powder In Packet
17 g PO BID
sennosides 17.2 mg Tablet
17.2 mg PO BID
fluticasone propionate 1 SPRAY spray,suspension
2 spray intranasal DAILY
amlodipine 5 MG tablet
5 mg PO DAILY Qty: 0 0RF
Discharge Orders:
Discharge Patient (As Directed); Ordered 10/26/24
Ordered By: Bart Felipe
Discharge Date and Time
Discharge Date/Time: 10/26/24 16:50
Print Language: NORWEGI[place]
== END 2024-10-26 16:50 | disposition home or self-care (01) | DRG 206 ==
LOC: 2 SOUTH 19:25
PROVIDERS: Clinical Nurse Specialist Family Health; Emergency Medicine; Nurse Practitioner Family; ADMITTING PHYSICIAN Hospitalist; ATTENDING PHYSICIAN Internal Medicine; EMERGENCY PHYSICIAN Student in an Organized Health Care Education/Training Program; FAMILY PHYSICIAN Internal Medicine
DX: J95.89 Other postprocedural complications and disorders of respiratory system, not elsewhere classified (principal); J98.11 Atelectasis; Y84.8 Other medical procedures as the cause of abnormal reaction of the patient, or of later complication, without mention of misadventure at the time of the procedure; Y92.530 Ambulatory surgery center as the place of occurrence of the external cause; R06.02 Shortness of breath; R09.02 Hypoxemia; E78.5 Hyperlipidemia, unspecified; I10 Essential (primary) hypertension; E83.51 Hypocalcemia; E87.6 Hypokalemia; E66.813 Obesity, class 3; R06.89 Other abnormalities of breathing; I27.20 Pulmonary hypertension, unspecified; G47.33 Obstructive sleep apnea (adult) (pediatric); G47.00 Insomnia, unspecified; K59.00 Constipation, unspecified; M19.90 Unspecified osteoarthritis, unspecified site; H35.043 Retinal micro-aneurysms, unspecified, bilateral; Z96.612 Presence of left artificial shoulder joint; Z96.653 Presence of artificial knee joint, bilateral; Z86.711 Personal history of pulmonary embolism; Z86.718 Personal history of other venous thrombosis and embolism; Z90.710 Acquired absence of both cervix and uterus; Z88.8 Allergy status to other drugs, medicaments and biological substances; Z11.52 Encounter for screening for COVID-19
CPT/HCPCS: 71045; 71275; 80048; 80053; 82805; 82962; 83036; 83735; 83880; 84484; 85025; 85027; 85379; 87502; 87811; 93005; 93306; 94640; 97116; 97163; 97167; 97530; 97535; 99285; Q9967

== ENCOUNTER → 2024-11-12 09:05 | Outpatient (REF) | payer MEDICARE, OTHER, SELFPAY ==
[2024-11-12 13:30] LABS: HDL Cholesterol 69 mg/dl; LDL Cholesterol, Calculated 91 mg/dl; Very Low Density Lipoprotein 25 mg/dl (0-30)
== END ==
LOC: HWLAB 09:05
PROVIDERS: ATTENDING PHYSICIAN Internal Medicine
DX: E78.5 Hyperlipidemia, unspecified (principal)
CPT/HCPCS: 36415; 80061

== ENCOUNTER → 2024-12-19 06:42 | Outpatient (REF) | payer MEDICARE, OTHER, SELFPAY | LOC: PAVMRI 06:42 | PROVIDERS: ATTENDING PHYSICIAN Podiatrist Foot & Ankle Surgery; FAMILY PHYSICIAN Internal Medicine | DX: M14.671 Charcot's joint, right ankle and foot (principal) | CPT/HCPCS: 73718 ==

== ENCOUNTER → 2025-01-02 19:22 | Outpatient (REF) | payer MEDICARE, OTHER, SELFPAY | LOC: PAVMRI 19:22 | PROVIDERS: ATTENDING PHYSICIAN Anesthesiology Pain Medicine; FAMILY PHYSICIAN Internal Medicine | DX: M54.16 Radiculopathy, lumbar region (principal) | CPT/HCPCS: 72148 ==